=== PATIENT | male | born 1940 | race Caucasian/White ===

== ENCOUNTER → 2017-04-20 | Outpatient (CLI) | payer MEDICARE, BC, OTHER ==
[2017-04-20 17:56] LABS: MEAN CORPUSCULAR HEMOGLOBIN 30.6 pg (27.0-33.0); MEAN CORPUSCULAR HGB CONC 34.1 g/dl (32.0-36.5); MEAN CORPUSCULAR VOLUME 89.5 fl (80.0-96.0); RED CELL DISTRIBUTION WIDTH 12.9 % (11.5-14.5); WHITE BLOOD COUNT 10.6 K/mm3 (4.0-10.0)
[2017-04-20 19:03] LABS: ANION GAP 7 MEQ/L (8-16); BLOOD UREA NITROGEN 20 MG/DL (7-18); CALCIUM LEVEL 9.2 MG/DL (8.8-10.2); CARBON DIOXIDE LEVEL 31 MEQ/L (21-32); CHLORIDE LEVEL 101 MEQ/L (98-107); CREATININE FOR GFR 1.15 MG/DL (0.70-1.30); GLOMERULAR FILTRATION RATE > 60.0 (>42); GLUCOSE, FASTING 99 MG/DL (83-110); POTASSIUM SERUM 4.3 MEQ/L (3.5-5.1); SODIUM LEVEL 139 MEQ/L (136-145)
== END ==
LOC: M SMT 13:57
PROVIDERS: ATTEND Internal Medicine Cardiovascular Disease
DX: I48.92 Unspecified atrial flutter (principal); I50.9 Heart failure, unspecified

== ENCOUNTER → 2017-04-27 | Outpatient (CLI) | payer MEDICARE, BC, OTHER ==
[2017-04-27 21:27] LABS: CALCIUM LEVEL 9.1 MG/DL (8.8-10.2); CREATININE FOR GFR 1.47 MG/DL (0.70-1.30); GLOMERULAR FILTRATION RATE 49.3 (>42); POTASSIUM SERUM 4.4 MEQ/L (3.5-5.1)
== END ==
LOC: M SMT 13:23
PROVIDERS: ATTEND Internal Medicine Cardiovascular Disease
DX: I48.2 Chronic atrial fibrillation (principal); I50.9 Heart failure, unspecified; I25.10 Atherosclerotic heart disease of native coronary artery without angina pectoris

== ENCOUNTER 2019-05-23 17:20 | Observation (INO) | payer MEDICARE, BC, OTHER ==
[~2019-05-23] VITALS: Ht 175.3 cm; Wt 102.8 kg
[~2019-05-23 17:20] MED LIST: WARFARIN SOD 2.5 MG TAB PO SCH
[2019-05-23] MEDS ORDERED: MAGN400C PO (17:44)
[2019-05-23] MEDS ORDERED: SYNT137T7 PO (17:44)
[2019-05-23] MEDS ORDERED: B COCAP4 PO (17:44)
[2019-05-23] MEDS ORDERED: POTA10CA32 PO (17:44)
[2019-05-23] MEDS ORDERED: FAMO40TA3 PO (17:44)
[2019-05-23] MEDS ORDERED: SILD25TA PO (17:44)
[2019-05-23] MEDS ORDERED: SPIR-10 PO (17:44)
[2019-05-23] MEDS ORDERED: WARF-18 PO (17:44)
[2019-05-23] MEDS ORDERED: D 50CAP3 PO (17:44)
[2019-05-23] MEDS ORDERED: TORS100T PO ×2 (17:44)
[2019-05-23] MEDS ORDERED: WARF-23 PO ×2 (17:44→19:49)
[2019-05-23] MEDS ORDERED: ALLO10TA PO (17:44)
--- NOTE | 2019-05-23 17:51 | REPVR ---
EXAM: CT Head Without Contrast EXAM DATE/TIME: 05/23/2019 5:32 PM CLINICAL HISTORY: 78 years old, male; Numbness / parasthesia and speech disturbance; Right; Slurred speech; Additional info: ? CVA TECHNIQUE: Imaging protocol: Computed tomography images of the head without contrast. Radiation optimization: All CT scans at this facility use at least one of these dose optimization techniques: automated exposure control; mA and/or kV adjustment per patient size (includes targeted exams where dose is matched to clinical indication); or iterative reconstruction. Other technique: STROKE PROTOCOL was implemented. COMPARISON: No relevant prior studies available. FINDINGS: Brain: The brain demonstrates diffuse volume loss. There is white matter hypodensity most consistent with chronic small vessel ischemic change. No visible evolving territorial infarct. No hemorrhage. Ventricles: The ventricles appear mildly enlarged in keeping with volume loss. Bones/joints: Unremarkable. No acute fracture. Sinuses: Visualized sinuses are unremarkable. No fluid levels. Mastoid air cells: Visualized mastoid air cells are well aerated. No mastoid effusion. Soft tissues: Unremarkable. IMPRESSION: 1. No acute intracranial abnormality seen. 2. ASPECT ([place] Stroke Program Early CT Score) = 10. Electronically signed by: Liseth De Los Santos On 05/23/2019 17:50:53 PM
[2019-05-23] MEDS ORDERED: SPIRONOLACTONE 25 MG TAB PO SCH (18:00)
[2019-05-23 19:29] LABS: BASO # 0.1 10^3/uL (0.0-0.2); BASO % 0.8 % (0.0-1.0); EOS # 0.2 10^3/uL (0.0-0.50); EOS % 2.2 % (0.0-3.0); HEMATOCRIT 37.8 % (42.0-52.0); HEMOGLOBIN 12.7 g/dl (13.5-17.5); LYMPH # 1.7 10^3/uL (1.5-4.5); LYMPH % 19.3 % (24.0-44.0); MEAN CORPUSCULAR HEMOGLOBIN 31.1 pg (27.0-33.0); MEAN CORPUSCULAR HGB CONC 33.6 g/dl (32.0-36.5); MEAN CORPUSCULAR VOLUME 92.6 fl (80.0-96.0); MONO # 0.7 10^3/uL (0.0-0.8); MONO % 8.2 % (0.0-5.0); NEUTROPHILS % 69.3 % (36.0-66.0); PLATELET COUNT, AUTOMATED 151 10^3/uL (150-450); RED BLOOD COUNT 4.08 10^6/uL (4.30-6.10); WHITE BLOOD COUNT 8.7 10^3/uL (4.0-10.0)
[2019-05-23] MEDS ORDERED: POTA20TA6 PO (19:49)
[2019-05-23] MEDS ORDERED: CLOB5CR TOP (19:49)
--- NOTE | 2019-05-23 20:05 | REP ---
Clinical: Altered mental status. Comparison: None. Findings: Cardiac silhouette is within normal limits. Evidence for prior sternotomy, aortic valve repair, CABG, and pacemaker. Lung callaway demonstrate chronic-appearing diffuse interstitial changes. No focal consolidation, effusion, or pneumothorax. Skeletal structures demonstrate age-related osteopenia and degenerative change. Impression: Chronic-appearing changes. No obvious acute consolidation or effusion. Electronically Signed by Long Guillen MD 05/23/2019 07:57 P
[2019-05-23 20:07] LABS: ACETAMINOPHEN LEVEL < 2.0 UG/ML (10.0-30.0); ALBUMIN 3.9 GM/DL (3.2-5.2); ALT/SGPT 30 U/L (12-78); BILIRUBIN,DIRECT 0.2 MG/DL (0.0-0.2); BILIRUBIN,TOTAL 0.7 MG/DL (0.2-1.0); BLOOD UREA NITROGEN 39 MG/DL (7-18); CALCIUM LEVEL 8.6 MG/DL (8.8-10.2); CARBON DIOXIDE LEVEL 29 MEQ/L (21-32); CHLORIDE LEVEL 105 MEQ/L (98-107); CPK CREATINE PHOSPHOKINASE 171 U/L (39-308); CREATININE FOR GFR 1.55 MG/DL (0.70-1.30); ETHYL ALCOHOL (ETHANOL) < 0.003 % (0.000-0.010); GLOMERULAR FILTRATION RATE 46.2 (>35); GLUCOSE, FASTING 93 MG/DL (70-100); MB/CK RELATIVE INDEX 1.17 (< OR =4); SALICYLATE LEVEL < 1.7 MG/DL (5.0-30.0); SODIUM LEVEL 141 MEQ/L (136-145); TOTAL PROTEIN 6.7 GM/DL (6.4-8.2); TROPONIN I 0.02 NG/ML (< 0.10)
[2019-05-23 20:08] LABS: INR 1.95
--- NOTE | 2019-05-23 20:37 | ECGEPIP ---
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
[2019-05-23] MEDS ORDERED: LEVOTHYROXINE 137MCG TABLET (0.137MG) PO SCH (21:00)
[2019-05-23] MEDS: DOCUSATE SODIUM 100 MG CAP PO SCH (21:00)
[2019-05-23] MEDS ORDERED: ALLOPURINOL 100 MG TAB PO SCH (21:00)
[2019-05-23] MEDS ORDERED: CLOBETASOL PROPIONATE EMOLLIENT 0.05% CR 60 GM TOP PRN (22:00)
--- NOTE | 2019-05-23 22:07 | HPEPDOC ---
General Date of Admission 05/23/19 Date of Service: May 23, 2019 Attending Physician: DEANNA GREEN MD Chief Complaint The patient is a 78-year-old male admitted with a reason for visit of Possible S troke. Source: Patient Exam Limitations: No limitations Timing/Duration: Other (yesterday) Severity: Other (, not applicable) Associated Symptoms: Other (fatigue) History of Present Illness 78 years old white male with past medical history of multiple medical problems including hypothyroidism, CAD status post CABG, [place] was in usual state of health until yesterday when he felt like he is falling backwards and lost the use of his right leg for a few moments and he somehow managed to sit himself on the chair without sustaining an injury. His later on noticed that his speech was slurred, but he didn't think much of it until he saw his media reporter today and his media reporter also notices slurred his speech and he said he felt very tired and was referred to emergency room for TIA/CVA workup. Patient is completely asymptomatic now. No dysarthria. No weakness. No sensory loss. No cranial nerve loss Home Medications Scheduled Allopurinol (Allopurinol) 100 Mg Tablet, 100 MG PO QHS, (Reported) Cholecalciferol (Vitamin D3) (Vitamin D3) 5,000 Unit Capsule, 5,000 UNIT PO DAILY, (Reported) Famotidine (Famotidine) 40 Mg Tablet, 40 MG PO BID, (Reported) Levothyroxine Sodium (Synthroid) 137 Mcg Tablet, 137 MCG PO QHS, (Reported) Magnesium Oxide (Magnesium) 400 Mg Capsule, 400 MG PO DAILY, (Reported) Potassium Chloride (Potassium Chloride) 20 Meq Tab.er.prt, 20 MEQ PO QID, (Reported) Spironolactone (Spironolactone) 25 Mg Tablet, 25 MG PO QPM, (Reported) Torsemide (Torsemide) 100 Mg Tablet, 100 MG PO 2XW, (Reported) /THU Torsemide (Torsemide) 100 Mg Tablet, 50 MG PO 5XW, (Reported) SAT/SUN/MON/WED/THURS Vitamin B Complex Vit C No.3 (B Complex with Vitamin C) 1 Each Capsule, 1 CAP PO DAILY, (Reported) Warfarin Sodium (Warfarin Sodium) 5 Mg Tablet, 5 MG PO 2XW, (Reported) /THU EVENINGS Warfarin Sodium (Warfarin Sodium) 5 Mg Tablet, 2.5 MG PO 5XW, (Reported) SAT/SUN/THU/THU/ Scheduled PRN Clobetasol Propionate (Clobetasol Emollient 0.05% Crm) 60 Gm Cream..g., 1 APLCT TOP BID PRN for RASH/ITCHING, (Reported) APPLY TO LEGS Sildenafil Citrate (Viagra) Unknown Strength Tablet, 1 TAB PO DAILY PRN for ERECTILE DYSFUNCTION, (Reported) Allergies Coded Allergies: Beta-Blockers (Beta-Adrenergic Bloc (Verified Adverse Reaction, Unknown, 05/23/19) Aybrhkf-Kzd-Ovc Reductase Inhibitor (Verified Adverse Reaction, Unknown, unknown, 05/23/19) Past Medical History Medical History Hypothyroidism, CA, CAD, ablation of a heart A. fib Surgical History His spinal injury, compression fracture, right lateral tibia hip injury, appendectomy, right ankle fracture correction right colostomy resection, open lung biopsy, triple heart bypass, pacemaker implanted 2. Melanoma removed from top of right shoulder cataract surgeries bypass, replace aortic wall. Both were in, right hip replacement ablation of the heart Social History * Smoker: Denies Alcohol: Denies Drugs: denies A-FIB/CHADSVASC A-FIB History Current/History of A-Fib/PAF?: Yes Current PO Anticoag Therapy: Yes Review of Systems Constitutional: Denies: Chills, Fever, Malaise, Night Sweats, Weakness, Fat igue, Weight Loss, Lethargy, Other Eyes: Denies: Pain, Vision change, Conjunctivae inflammation, Eyelid inflammation, Redness, Other ENT: Denies: Head Aches, Ear Pain, Dysphagia, Sinus Congestion, Post Nasal Drip, Sore Throat, Epistaxis, Other Symptoms Skin: Denies: Rash, Lesions, Jaundice, Bruising, Itching, Dry, Breakdown, Nail Changes, Other Pulmonary: Denies: Dyspnea, Cough, Pleuritic Chest Pain, Other Symptoms Cardiovascular: Denies: Chest Pain, Palpitations, Orthopnea, Paroxysmal Noc. Dyspnea, Edema, Lt Headedness, Other Symptoms Gastrointestinal: Denies: Nausea, Vomiting, Abdominal Pain, Diarrhea, Constipation, Melena, Hematochezia, Other Symptoms Genitourinary: Denies: Dysuria, Frequency, Incontinence, Hematuria, Retention, Other Symptoms Endocrine: Denies: Polydipsia, Polyphagia, Polyuria, Heat Intolerance, Cold Intolerance, Other Endocrine Sx Musculoskeletal: Denies: Neck Pain, Back Pain, Shoulder Pain, Arm Pain, Hand Pain, Leg Pain, Foot Pain, Joint Pain, Muscle Pain, Spasms, Other Symptoms Neurological: Reports: Other Symptoms (. Patient had a significant of weakness of his right leg and the dysarthria but all symptoms have resolved now); Denies: Weakness, Numbness, Incoordination, Change in speech, Confusion, Seizures Psych: Denies: Mood Normal, Anxiety, Depression, Memory Issues, Thoughts of Self Harm, Anger, Thoughts of Harming Other, Other Psych Physical Examination General Exam: Positive: Alert, Cooperative Eye Exam: Positive: PERRLA, Conjunctiva & lids normal ENT Exam: Positive: Atraumatic Neck Exam: Positive: Supple Chest Exam: Positive: Clear to auscultation, Normal air movement Heart Exam: Positive: Rate Normal, Normal S1, Normal S2 Abdomen Exam: Positive: Normal bowel sounds, Soft Extremity Exam: Positive: Normal pulses Skin Exam: Positive: Nl turgor and temperature Neuro Exam: Positive: Normal Speech, Strength at 5/5 X4 ext, Sensation Intact, Cranial Nerves 3-12 NL Psych Exam: Positive: Mental status NL, Mood NL, Oriented x 3 Vital Signs Vital Signs Date Time Temp Pulse Resp B/P (MAP) Pulse Ox O2 Delivery O2 Flow Rate FiO2 05/23/19 19:15 61 16 151/68 (95) 99 Room Air 05/23/19 17:20 98.3 Laboratory Data Labs 24H Laboratory Tests 2 05/23/19 19:12: Prothrombin Time 22.0H, Prothromb Time International Ratio 1.95 05/23/19 19:13: Immature Granulocyte % (Auto) 0.2, White Blood Count 8.7, Red Blood Count 4.08L, Hemoglobin 12.7L, Hematocrit 37.8L, Mean Corpuscular Volume 92.6, Mean Corpuscular Hemoglobin 31.1, Mean Corpuscular Hemoglobin Concent 33.6, Red Cell Distribution Width 13.2, Platelet Count 151, Neutrophils (%) (Auto) 69.3H, Lymphocytes (%) (Auto) 19.3L, Monocytes (%) (Auto) 8.2H, Eosinophils (%) (Auto) 2.2, Basophils (%) (Auto) 0.8, Neutrophils # (Auto) 6.0, Lymphocytes # (Auto) 1.7, Monocytes # (Auto) 0.7, Eosinophils # (Auto) 0.2, Basophils # (Auto) 0.1, Nucleated Red Blood Cells % (auto) 0.0, Urine Color STRAW, Urine Appearance CLEAR, Urine pH 6.0, Urine Specific [place] 1.004, Urine Protein NEGATIVE, Urine Glucose (UA) NEGATIVE, Urine Ketones NEGATIVE, Urine Blood NEGATIVE, Urine N itrite NEGATIVE, Urine Bilirubin NEGATIVE, Urine Urobilinogen 0.2, Urine Leukocyte Esterase NEGATIVE, Urine WBC (Auto) 0, Urine RBC (Auto) 1, Urine Hyaline Casts (Auto) 0, Urine Bacteria (Auto) NEGATIVE, Urine Squamous Epithelial Cells 0, Urine Sperm (Auto) , Anion Gap 7L, Glomerular Filtration Rate 46.2, Lactic Acid Level 1.3, Calcium Level 8.6L, Aspartate Amino Transf (AST/SGOT) 23, Alanine Aminotransferase (ALT/SGPT) 30, Alkaline Phosphatase 96, Total Bilirubin 0.7, Direct Bilirubin 0.2, Total Creatine Kinase 171, Creatine Kinase MB 2.0, Creatine Kinase MB Relative Index 1.17, Troponin I 0.02, Total Protein 6.7, Albumin 3.9, Albumin/Globulin Ratio 1.39, Thyroid Stimulating Hormone (TSH) 2.880, Salicylates Level < 1.7L, Acetaminophen Level < 2.0L, Ethyl Alcohol Level < 0.003 CBC/BMP Laboratory Tests 05/23/19 19:13 Red Blood Count 4.08 L, Mean Corpuscular Volume 92.6, Mean Corpuscular Hemoglobin 31.1, Mean Corpuscular Hemoglobin Concent 33.6, Red Cell Distribution Width 13.2, Neutrophils (%) (Auto) 69.3 H, Lymphocytes (%) (Auto) 19.3 L, Monocytes (%) (Auto) 8.2 H, Eosinophils (%) (Auto) 2.2, Basophils (%) (Auto) 0.8, Neutrophils # (Auto) 6.0, Lymphocytes # (Auto) 1.7, Monocytes # (Auto) 0.7, Eosinophils # (Auto) 0.2, Basophils # (Auto) 0.1 Problems (1) TIA (transient ischemic attack) Status: Acute Problem Text: 78 years old white male with past medical history of aortic wall replacement, bovine wall. History of A. fib in the past, status post ablation, has pacemaker 2. Also had a triple bypass surgery done, came in with chief complaints of right leg weakness and is dysarthria which resolved by now and the patient is completely asymptomatic. We'll called in to admit patient for TIA workup. Chest pain, shortness of breath, weakness, nausea, vomiting, diarrhea, etc. Admit patient to PCU for further observation under telemetry Patient's Coumadin is therapeutic. INR is 1.9. We'll continue the home dose CT head was essentially negative. MRI could not done due to his PPM. Echocardiogram Bilateral carotid duplex Continue all home meds Physical therapy evaluation DVT prophylaxis not needed as patient is on Coumadin with therapeutic INR Diet is 2 g sodium Activity is as tolerated Che discharge in a.m. once workup is complete (2) Hypothyroid Status: Chronic Problem Text: Continue current medications (3) CAD (coronary artery disease) Status: Chronic Problem Text: Stable continue home meds, (4) Aortic valve replaced Status: Chronic Problem Text: Stable on the Coumadin become with therapeutic INR Plan / VTE VTE Prophylaxis Ordered?: Yes DEANNA GREEN MD May 23, 2019 22:07
[2019-05-23] MEDS ORDERED: MAALOX 30 ML SUSP *UDC PO PRN (22:30)
[2019-05-23] MEDS ORDERED: ACETAMINOPHEN TAB 650MG DOSE (2X325MG) PO PRN (22:30)
[2019-05-23] MEDS ORDERED: MOM 30ML SUSPENSION UDC PO PRN (22:30)
[2019-05-24] MEDS: POTASSIUM CHLORIDE 10 MEQ SR TABLET PO SCH ×3 (00:34→13:32)
[2019-05-24] MEDS: FAMOTIDINE 20 MG TAB PO SCH ×2 (00:35→13:31)
--- NOTE | 2019-05-24 03:46 | REPVR ---
EXAM: US Duplex Bilateral Extracranial Arteries EXAM DATE/TIME: 05/24/2019 1:33 AM CLINICAL HISTORY: 78 years old, male; Speech disturbance and weakness, extremity; Left; Slurred speech; Additional info: TIA TECHNIQUE: Imaging protocol: Real-time Duplex ultrasound scan of the Bilateral carotid and vertebral arteries combining esparza scale, color Doppler and spectral waveform analysis. COMPARISON: No relevant prior studies available. FINDINGS: Right common carotid artery: There is mild calcified and noncalcified atherosclerotic plaque in the right carotid bulb. No occlusion or significant stenosis. Waveforms are normal. Peak systolic velocity of 93.8 cm/s. Right internal carotid artery: Unremarkable. No occlusion or significant stenosis. Waveforms are normal. Peak systolic velocity of 101.4 cm/s. Right ICA/CCA ratio: 1.08. Within normal limits. Right external carotid artery: No significant stenosis in the origin. Peak systolic velocity of 118.5 cm/s. Right vertebral artery: Unremarkable. Antegrade flow. Peak systolic velocity of 61.5 cm/s. Left common carotid artery: There is moderate predominantly calcified atherosclerotic plaque in the left carotid bulb, resulting in moderate stenosis (50-69%). Waveforms are normal. Peak systolic velocity of 137.8 cm/s. Left internal carotid artery: There is moderate predominantly calcified atherosclerotic plaque in the left internal carotid artery, resulting in moderate stenosis (50-69%). Waveforms are normal. Peak systolic velocity of 147.2 cm/s. Left ICA/CCA ratio: 1.07. Within normal limits. Left external carotid artery: No significant stenosis in the origin. Peak systolic velocity of 114.4 cm/s. Left vertebral artery: Unremarkable. Antegrade flow. Peak systolic velocity of 34.4 cm/s. IMPRESSION: 1. Moderate stenosis (50-69%) of the left carotid bulb and left internal carotid artery. 2. No significant stenosis or occlusion of the right carotid arteries. COMMENT: Carotid Stenosis Reference using SRU criteria: Mild: less than 50% stenosis. ICA PSV is less than 125 cm/second and plaque or intimal thickening is visible. Moderate: 50-69% stenosis. ICA PSV is 125 to 230 cm/second and plaque is visible. Severe: 70-94% stenosis. ICA PSV is more than 230 cm/second and visible plaque and lumen narrowing are seen. Near occlusion: 95-99% stenosis. ICA PSV is variable and significant plaque and luminal narrowing are seen. Occluded: 100% stenosis. No flow identified. Electronically signed by: Joshua Arreaga On 05/24/2019 03:46:28 AM
[2019-05-24 07:08] LABS: INR 1.91; PROTHROMBIN TIME 21.7 SECONDS (11.8-14.0)
[2019-05-24] MEDS ORDERED: MAGNESIUM OXIDE 400 MG TAB (MAG-OX) PO SCH (09:00)
[2019-05-24] MEDS ORDERED: VITAMIN B COMPLEX/VIT C CAP PO SCH (09:00)
[2019-05-24] MEDS ORDERED: TORSEMIDE 20 MG TAB PO SCH (09:00)
[2019-05-24] MEDS: DOCUSATE SODIUM 100 MG CAP PO SCH (13:22)
[2019-05-24 13:36] VITALS: BP 174/77
--- NOTE | 2019-05-24 21:24 | DS.PDOC ---
Discharge Summary General Date of Admission May 23, 2019 at 21:47 Date of Discharge May 24 2019 Discharge Summary PROCEDURES PERFORMED DURING STAY: [None]. ADMITTING DIAGNOSES: 1. TIA (Transient Ischemic Attack). DISCHARGE DIAGNOSES: 1. Tia (Transient Ischemic Attack). COMPLICATIONS/CHIEF COMPLAINT: Tia (Transient Ischemic Attack). HISTORY OF PRESENT ILLNESS: [78 years old white male with past medical history of multiple medical problems including hypothyroidism, CAD status post CABG, [place] was in usual state of health until yesterday when he felt like he is falling backwards and lost the use of his right leg for a few moments and he somehow managed to sit himself on the chair without sustaining an injury. His later on noticed that his speech was slurred, but he didn't think much of it until he saw his community education specialist today and his community education specialist also notices slurred his speech and he said he felt very tired and was referred to emergency room for TIA/CVA workup. Patient is completely asymptomatic now. No dysarthria. No weakness. No sensory loss. No cranial nerve loss]. HOSPITAL COURSE: [ Patient admitted and monitored on telemetry without any events. Patient had CTH done which did not show any acute bleeding or focal findings. MRI was unable to be done due to his PPM. B/L Carotid duplex "IMPRESSION: 1. Moderate stenosis (50-69%) of the left carotid bulb and left internal carotid artery. 2. No signi ficant stenosis or occlusion of the right carotid arteries." Physical therapy evaluation was done and recommend d/c skilled PT services upon return to [place] but deemed safe to d/c home with assist as needed. Patient endorses that he was specifically told to not take aspirin due to being on coumadin (noted to be therapeutic INR 1.9) and noted history of statin induced myopathy limiting prescriptions of ASA/statin for secondary prevention. Patient will follow up with his Pet Care Associate and PMD. ]. DISCHARGE MEDICATIONS: Please see below. ALLERGIES: Please see below. PHYSICAL EXAMINATION ON DISCHARGE: VITAL SIGNS: Please see below. GENERAL: [NAD, elderly male, pleasant] HEENT: [EOMI, MMM, no lymphadenopathy] NECK: [supple, no masses] CARDIOVASCULAR EXAMINATION: [s1/s2 present, rrr, no m/r/g noted ] RESPIRATORY EXAMINATION: [clear b/l, no wheezing, rales, rhonchi] ABDOMINAL EXAMINATION: [obese, soft, nt, nd, bowel sounds present] EXTREMITIES: [no LE edema, ambulating well] SKIN: [no bruising or breakdown] NEUROLOGICAL EXAMINATION: [no focal neuro deficits, ambulating well, A&Ox3] PSYCHIATRIC EXAMINATION: [normal mood and affect] LABORATORY DATA: Please see below. Vital Signs Date Time Temp Pulse Resp B/P (MAP) Pulse Ox O2 Delivery O2 Flow Rate FiO2 05/24/19 13:36 96.5 64 17 174/77 (109) 95 Room Air 05/24/19 13:30 62 17 99 05/24/19 13:15 60 98 05/24/19 13:00 65 98 05/24/19 12:45 64 97 05/24/19 12:30 72 96 05/24/19 12:15 66 98 Room Air 05/24/19 12:00 60 98 Room Air 05/24/19 11:45 64 98 Room Air 05/24/19 11:30 97.3 71 18 117/68 (84) 97 Room Air 05/24/19 11:30 63 98 Room Air 05/24/19 11:15 63 98 05/24/19 11:00 61 99 05/24/19 10:45 63 100 05/24/19 10:30 64 98 05/24/19 10:15 61 98 05/24/19 10:00 68 99 05/24/19 09:35 148/64 (92) 05/24/19 09:30 71 99 05/24/19 09:15 61 98 05/24/19 09:00 66 98 05/24/19 08:45 66 97 05/24/19 08:30 63 98 05/24/19 08:15 69 98 05/24/19 08:00 63 98 05/24/19 07:45 62 98 05/24/19 07:30 60 98 05/24/19 07:15 60 98 05/24/19 07:00 63 97 05/24/19 06:45 66 18 98 Room Air 05/24/19 06:30 74 18 97 Room Air 05/24/19 06:15 64 18 153/70 (97) 98 Room Air 05/24/19 06:01 141/64 (89) 05/24/19 06:00 71 18 98 Room Air 7/30/19 05:45 61 18 153/65 (94) 97 Room Air 05/24/19 05:30 60 18 128/60 (82) 97 Room Air 05/24/19 05:15 59 18 117/55 (75) 97 Room Air 05/24/19 05:00 80 18 137/61 (86) 96 Room Air 05/24/19 04:45 60 18 148/65 (92) 96 Room Air 05/24/19 04:30 143/62 (89) 05/24/19 04:15 65 18 148/65 (92) 96 Room Air 05/24/19 04:00 61 18 142/62 (88) 98 Room Air 05/24/19 03:46 155/70 (98) 05/24/19 03:45 85 18 145/89 (107) 99 Room Air 05/24/19 03:45 85 18 98 Room Air 05/24/19 03:31 149/89 (109) 05/24/19 03:30 70 98 05/24/19 03:16 142/65 (90) 05/24/19 03:15 60 97 05/24/19 03:00 60 123/60 (81) 87 05/24/19 02:45 59 115/53 (73) 94 05/24/19 02:30 60 144/65 (91) 96 05/24/19 02:16 123/57 (79) 05/24/19 02:15 60 96 05/24/19 02:00 64 149/67 (94) 97 05/24/19 01:46 152/67 (95) 05/24/19 01:45 62 96 05/24/19 01:30 65 96 05/24/19 01:15 64 98 05/24/19 01:00 72 159/63 (95) 98 05/24/19 00:47 70 20 146/64 (91) 98 Room Air 05/24/19 00:46 146/64 (91) 05/24/19 00:45 63 95 05/24/19 00:30 60 146/66 (92) 98 05/24/19 00:15 65 143/65 (91) 98 05/24/19 00:01 156/65 (95) 05/24/19 00:00 62 98 05/23/19 23:46 160/68 (98) 05/23/19 23:45 60 96 05/23/19 23:31 185/79 (114) 05/23/19 23:30 65 99 05/23/19 23:15 62 99 05/23/19 23:00 63 100 05/23/19 22:45 66 98 05/23/19 22:30 67 16 99 Room Air 05/23/19 22:00 62 16 98 Room Air 05/23/19 21:30 61 16 99 Room Air Laboratory Tests 05/24/19 06:35: Prothrombin Time 21.7H, Prothromb Time International Ratio 1.91 Current Medications Medications (Trade) Dose Ordered Sig/Carroll Route PRN Reason Start Time Stop Time Status Last Admin Dose Admin Allopurinol (Zyloprim) 100 mg QHS PO 05/23/19 21:00 05/24/19 00:35 100 MG Docusate Sodium (Colace) 100 mg BID PO 05/23/19 21:00 05/23/19 21:00 100 MG Famotidine (Pepcid) 40 mg BID PO 05/23/19 21:00 05/24/19 13:31 40 MG Levothyroxine Sodium (Synthroid) 137 mcg QHS PO 05/23/19 21:00 05/24/19 00:45 137 MCG Magnesium Oxide (Mag-Ox) 400 mg DAILY PO 05/24/19 09:00 05/24/19 13:30 400 MG Potassium Chloride (Micro-K Extencaps) 20 meq QID PO 05/23/19 21:00 05/24/19 13:32 20 MEQ Spironolactone (Aldactone) 25 mg DAILY@1800 PO 05/23/19 18:00 05/24/19 00:35 25 MG Torsemide (Demadex) 80 mg DAILY PO 05/24/19 09:00 05/24/19 13:29 80 MG Vitamin B Complex/ Vitamin C (Therapeutic B Complex w/C) 1 cap DAILY PO 05/24/19 09:00 05/24/19 13:32 1 CAP Warfarin Sodium (Coumadin) 2.5 mg DAILY@17 PO 05/23/19 17:00 05/24/19 00:45 2.5 MG DISPOSITION: Home with and grandson DISCHARGE INSTRUCTIONS: 1. [Follow up with your primary care doctor with in the next 2 weeks. If you develop any new or worsening symptoms please return to the ED immediately for evaluation]. DISCHARGE CONDITION: [Stable]. TIME SPENT ON DISCHARGE: Greater than 30 minutes. Vital Signs/I&Os Vital Signs Date Time Temp Pulse Resp B/P (MAP) Pulse Ox O2 Delivery O2 Flow Rate FiO2 05/24/19 13:36 96.5 64 17 174/77 (109) 95 Room Air Laboratory Data Labs 24H Laboratory Tests 2 05/24/19 06:35: Prothrombin Time 21.7H, Prothromb Time International Ratio 1.91 Discharge Medications Scheduled Allopurinol (Allopurinol) 100 Mg Tablet, 100 MG PO QHS, (Reported) Cholecalciferol (Vitamin D3) (Vitamin D3) 5,000 Unit Capsule, 5,000 UNIT PO DAILY, (Reported) Famotidine (Famotidine) 40 Mg Tablet, 40 MG PO BID, (Reported) Levothyroxine Sodium (Synthroid) 137 Mcg Tablet, 137 MCG PO QHS, (Reported) Magnesium Oxide (Magnesium) 400 Mg Capsule, 400 MG PO DAILY, (Reported) Potassium Chloride (Potassium Chloride) 20 Meq Tab.er.prt, 20 MEQ PO QID, (Reported) Spironolactone (Spironolactone) 25 Mg Tablet, 25 MG PO QPM, (Reported) Torsemide (Torsemide) 100 Mg Tablet, 100 MG PO 2XW, (Reported) /THU Torsemide (Torsemide) 100 Mg Tablet, 50 MG PO 5XW, (Reported) SAT/SUN/THU/THU/URS Vitamin B Complex Vit C No.3 (B Complex with Vitamin C) 1 Each Capsule, 1 CAP PO DAILY, (Reported) Warfarin Sodium (Warfarin Sodium) 5 Mg Tablet, 5 MG PO 2XW, (Reported) /FRI EVENINGS Warfarin Sodium (Warfarin Sodium) 5 Mg Tablet, 2.5 MG PO 5XW, (Reported) SAT/SUN/MON/THU/THURS Scheduled PRN Clobetasol Propionate (Clobetasol Emollient 0.05% Crm) 60 Gm Cream..g., 1 APLCT TOP BID PRN for RASH/ITCHING, (Reported) APPLY TO LEGS Sildenafil Citrate (Viagra) Unknown Strength Tablet, 1 TAB PO DAILY PRN for ERECTILE DYSFUNCTION, (Reported) Allergies Coded Allergies: Beta-Blockers (Beta-Adrenergic Bloc (Verified Adverse Reaction, Unknown, 05/23/19) Vesbtdo-Zma-Eul Reductase Inhibitor (Verified Adverse Reaction, Unknown, unknown, 05/23/19) KOREY DALE MD May 24, 2019 21:24
== END 2019-05-24 14:25 | disposition home or self-care (01) ==
LOC: M ED 17:20 → M ED INP 21:47
PROVIDERS: ADMIT Internal Medicine; ATTEND Internal Medicine
DX: G45.9 Transient cerebral ischemic attack, unspecified (principal); E03.9 Hypothyroidism, unspecified; I25.10 Atherosclerotic heart disease of native coronary artery without angina pectoris; Z95.2 Presence of prosthetic heart valve; I25.2 Old myocardial infarction; I48.91 Unspecified atrial fibrillation; Z79.01 Long term (current) use of anticoagulants; Z79.899 Other long term (current) drug therapy; Z88.8 Allergy status to other drugs, medicaments and biological substances
CPT/HCPCS: 36415; 70450; 71045; 80048; 80076; 81001; 82550; 82553; 83605; 84443; 84484; 85025; 85610; 93005; 93041; 93880; 94760; 97161; 99285; G0378; G0480

== ENCOUNTER → 2019-07-07 | Outpatient (CLI) | payer MEDICARE, BC, OTHER ==
[~2019-07-07] MED LIST changes: +ALLO10TA PO; +B COCAP4 PO; +CLOB5CR TOP; +D 50CAP3 PO; +FAMO40TA3 PO; +MAGN400C PO; +POTA10CA32 PO; +POTA20TA6 PO; +SILD25TA PO; +SPIR-10 PO; +SYNT137T7 PO; +TORS100T PO; +WARF-18 PO; +WARF-23 PO; -WARFARIN SOD 2.5 MG TAB PO SCH
[2019-07-07 12:22] LABS: ALBUMIN 3.8 GM/DL (3.2-5.2); BILIRUBIN,TOTAL 0.8 MG/DL (0.2-1.0); CALCIUM LEVEL 9.1 MG/DL (8.8-10.2); CHOLESTEROL RISK RATIO 1.508 (<5); CREATININE FOR GFR 1.29 MG/DL (0.70-1.30); GLOMERULAR FILTRATION RATE 57.1 (>35); POTASSIUM SERUM 5.2 MEQ/L (3.5-5.1); TOTAL PROTEIN 6.2 GM/DL (6.4-8.2)
== END ==
LOC: M WUC 10:35
PROVIDERS: ATTEND Internal Medicine Cardiovascular Disease
DX: E78.00 Pure hypercholesterolemia, unspecified (principal)

== ENCOUNTER → 2019-07-08 | Outpatient (CLI) | payer MEDICARE, BC, OTHER ==
--- NOTE | 2019-07-08 12:43 | REP ---
Chest, two views Indication: Pneumonia. Comparison: Portable chest view of 05/23/2019. Findings: There is similar appearance of aortic valve replacement with sternotomy wires, the upper and fourth wires are interrupted but unchanged. There is left-sided anterior chest wall pacemaker with intact leads and scattered mediastinal surgical clips. The cardiomediastinal silhouette is normal in appearance for size. Pulmonary vascularity is within normal limits. There is no focal consolidation. The costophrenic angles are sharp. The overlying soft tissues are unremarkable. Impression: No evidence of pneumonia. Electronically Signed by Mynor Pyle MD 07/08/2019 12:35 P
== END ==
LOC: M WUC 12:17
PROVIDERS: ATTEND Internal Medicine
DX: J18.9 Pneumonia, unspecified organism (principal)

== ENCOUNTER → 2024-05-17 | Outpatient (CLI) | payer MEDICARE, BC, OTHER ==
[~2024-05-17] MED LIST changes: +POTA-151 PO; -POTA10CA32 PO; +POTA10CA70 PO; -POTA20TA6 PO
== END ==
LOC: M WUC 12:28
PROVIDERS: ATTEND Internal Medicine
DX: J12.2 Parainfluenza virus pneumonia (principal)

== ENCOUNTER → 2024-07-05 | Outpatient (CLI) | payer MEDICARE, BC, OTHER | LOC: M WUC 13:27 | PROVIDERS: ATTEND Internal Medicine | DX: I50.9 Heart failure, unspecified (principal); I51.7 Cardiomegaly; J84.89 Other specified interstitial pulmonary diseases ==